=== PATIENT | female | born 1975 | race Caucasian/White ===

== ENCOUNTER 2018-06-22 00:12 | Emergency (ER) | payer BC, OTHER ==
[2018-06-22] MEDS ORDERED: NORMAL SALINE 1000 ML 1,000 ML IV ONE (00:45)
[2018-06-22] MEDS ORDERED: ONDANSETRON HCL INJ/PF 4 MG/2 ML SDV IV ONE (00:45)
[2018-06-22] MEDS ORDERED: MORPHINE SULFATE 10 MG/ML INJ IV PRN (00:45)
[2018-06-22] MEDS ORDERED: KETOROLAC TROMETHAMINE INJ/PF 30 MG/1 ML SDV IV ONE (00:45)
[2018-06-22 01:11] LABS: ABSOLUTE EOSINOPHILS # (AUTO) 0.1 10^3/uL (0.0-0.6); ABSOLUTE LYMPHOCYTES (AUTO) 1.5 10^3/uL (0.5-4.7); ABSOLUTE MONOCYTES (AUTO) 0.7 10^3/uL (0.1-1.4); ABSOLUTE NEUT (AUTO) 14.7 10^3/uL (1.7-8.2); BASOPHILS % (AUTO) 0.2 % (0-2); EOSINOPHILS % (AUTO) 0.6 % (0-6); HEMATOCRIT 40.5 % (36.0-47.0); HEMOGLOBIN 14.1 g/dL (12.0-15.5); LYMPHOCYTES % (AUTO) 8.9 % (13-45); MEAN CORPUSCULAR HEMOGLOBIN 31.9 pg (27.0-33.4); MEAN CORPUSCULAR HGB CONC 34.7 g/dL (32.0-36.0); MEAN CORPUSCULAR VOLUME 92 fl (80-97); MONOCYTES % (AUTO) 3.9 % (3-13); PLATELET COUNT 237 10^3/uL (150-450); RED CELL DISTRIBUTION WIDTH 13.5 % (11.5-14.0); SEGMENTED NEUTROPHILS % (AUTO) 86.4 % (42-78); TOTAL CELLS COUNTED % (AUTO) 100 %
[2018-06-22] MEDS ORDERED: METOCLOPRAMIDE HCL INJ/PF 10 MG/2 ML SDV IV ONE (01:11)
[2018-06-22 01:29] LABS: ALANINE AMINOTRANSFERASE 21 U/L (9-52); ALBUMIN 4.7 g/dL (3.5-5.0); ALKALINE PHOSPHATASE 95 U/L (38-126); ANION GAP 14 (5-19); ASPARTATE AMINO TRANSFERASE 26 U/L (14-36); BILIRUBIN,DIRECT 0.3 mg/dL (0.0-0.4); BILIRUBIN,TOTAL 0.7 mg/dL (0.2-1.3); BLOOD UREA NITROGEN 15 mg/dL (7-20); CALCIUM 9.7 mg/dL (8.4-10.2); CARBON DIOXIDE 26 mmol/L (22-30); CHLORIDE 99 mmol/L (98-107); GLUCOSE 137 mg/dL (75-110); POTASSIUM 4.1 mmol/L (3.6-5.0); SODIUM 139.4 mmol/L (137-145); TOTAL PROTEIN 8.6 g/dL (6.3-8.2)
--- NOTE | 2018-06-22 02:03 | RADIOLOGY REPORT (SQ) ---
CLINICAL HISTORY: rlq pain, eval stone, hx complicated stones COMPARISON: None. TECHNIQUE: CT ABDOMEN PELVIS WITHOUT IV CONTRAST on 06/22/2018 1:10 AM CDT This exam was performed according to our departmental dose-optimization program, which includes automated exposure control, adjustment of the mA and/or kV according to patient size and/or use of iterative reconstruction technique. FINDINGS: Lower lungs are clear. Abdomen: There is a cyst in the anterior left lobe of the liver which are simple in configuration and measures 2.7 cm. There is no biliary dilatation. Gallbladder is normal in appearance. The pancreas and spleen are normal in appearance. Adrenal glands are normal. There are at least three left renal calculi measuring up to 4 mm. There are two lower pole right renal calculi measuring up to 9 mm. There is a 5 mm calculus at the right UPJ. There is mild right hydronephrosis. There is no left hydronephrosis. Abdominal aorta is normal in course and caliber without aneurysm. There is no free air. There is no retroperitoneal adenopathy. Pelvis: There is mild diverticulosis of the distal colon. Urinary bladder is unremarkable. There is no free fluid. Hysterectomy was performed. Skeleton: There are no acute osseous findings. No suspicious bony lesions. IMPRESSION: Bilateral nephrolithiasis with 5 mm right UPJ calculus.
[2018-06-22 02:09] LABS: APPEARANCE,URINE CLEAR; BILIRUBIN,URINE NEGATIVE (NEGATIVE); COLOR,URINE YELLOW; GLUCOSE, URINE NEGATIVE (NEGATIVE); KETONES,URINE TRACE mg/dL (NEGATIVE); LEUKOCYTE ESTERASE,URINE NEGATIVE (NEGATIVE); NITRITE,URINE NEGATIVE (NEGATIVE); PROTEIN,URINE NEGATIVE (NEGATIVE); UROBILINOGEN,URINE NEGATIVE mg/dL (<2.0)
[2018-06-22] MEDS: HYDROMORPHONE HCL INJ/PF 2 MG/ML AMPULE IV PRN ×2 (02:11→03:34)
[2018-06-22] MEDS ORDERED: HYDROCODONE/ACETAMINOPHEN 5-325 MG (6 TAB/ER DISP) PO PRN (03:05)
[2018-06-22] MEDS ORDERED: ONDANSETRON ODT 4 MG TAB (6 TAB/ER DISP) PO PRN (03:05)
[2018-06-22] MEDS ORDERED: TAMSULOSIN HCL 0.4 MG CAP.SR.24H PO ONE (03:05)
--- NOTE | 2018-06-22 03:08 | ER Document Report ---
ED General - General Chief Complaint: Abdominal Pain Stated Complaint: NAUSEA Time Seen by Provider: 06/22/18 00:45 Primary Care Provider: EL KINSEY [Primary Care Provider] - Follow up as needed Notes: Patient is a 43-year-old female with a past medical history of appendectomy, hysterectomy, nephrectomy bilaterally, history of nephrolithiasis, presents with an acute onset of right lower quadrant abdominal pain. States that approximate 2 hours prior to arrival she had an abrupt onset of severe, throbbing, constant pain to the right lower abdomen. Has had associated nausea and vomiting. He was noted to improve or worsen the pain. She states that she had kidney stones in the past but this feels even more severe than that pain. Has not seen her primary care doctor regarding today's concerns. She has had 3 kidney stones in the past all of which required lithotripsy and she has never been able to successfully passed one on her own. TRAVEL OUTSIDE OF THE [place] IN LAST 30 DAYS: No - Related Data Allergies/Adverse Reactions: morphine Adverse Reaction (Verified 06/22/18 01:04) VOMITING Past Medical History - General Information source: Patient - Social History Smoking Status: Never Smoker Frequency of alcohol use: None Drug Abuse: None Lives with: Family Family History: Reviewed & Not Pertinent - Past Medical History Cardiac Medical History: Denies: Hx Coronary Artery Disease, Hx Heart Attack, Hx Hypertension Pulmonary Medical History: Reports: Hx Asthma - Rarely uses inhaler(>1 yr since last use) Denies: Hx Bronchitis, Hx COPD, Hx Pneumonia Neurological Medical History: Denies: Hx Cerebrovascular Accident, Hx Seizures Musculoskeletal Medical History: Denies Hx Arthritis Past Surgical History: Denies: Hx Pacemaker - Immunizations Hx Diphtheria, Pertussis, Tetanus Vaccination: No Review of Systems - Review of Systems Notes: Constitutional: Negative for fever. HENT: Negative for sore throat. Eyes: Negative for visual changes. Cardiovascular: Negative for chest pain. Respiratory: Negative for shortness of breath. Gastrointestinal: Positive for right lower abdominal pain and vomiting Genitourinary: Negative for dysuria. Musculoskeletal: Negative for back pain. Skin: Negative for rash. Neurological: Negative for headaches, weakness or numbness. 10 point ROS negative except as marked above and in HPI. Physical Exam - Vital signs Vitals: Temp Pulse Resp BP Pulse Ox 97.8 F 77 28 H 147/90 H 100 06/22/18 00:26 06/22/18 00:26 06/22/18 00:26 06/22/18 00:26 06/22/18 00:26 Interpretation: Hypertensive, Tachypneic Notes: PHYSICAL EXAMINATION: GENERAL: Appears uncomfortable, vomiting HEAD: Atraumatic, normocephalic. EYES: Pupils equal round and reactive to light, extraocular movements intact, sclera anicteric, conjunctiva are normal. ENT: nares patent, oropharynx clear without exudates. Moist mucous membranes. NECK: Normal range of motion, supple without lymphadenopathy LUNGS: Breath sounds clear to auscultation bilaterally and equal. No wheezes rales or rhonchi. HEART: Regular rate and rhythm without murmurs ABDOMEN: Soft, mild tenderness to the right lower quadrant as well as the right flank but no other localized areas of tenderness, normoactive bowel sounds. No guarding, no rebound. No masses appreciated. EXTREMITIES: Normal range of motion, no pitting or edema. No cyanosis. NEUROLOGICAL: No focal neurological deficits. Moves all extremities spontaneously and on command. PSYCH: Normal mood, normal affect. SKIN: Warm, Dry, normal turgor, no rashes or lesions noted. Appears very uncom fortable, nauseated but in no acute distress Course - Re-evaluation Re-evalutation: 06/22/18 03:04 Presents with findings consistent with acute nephrolithiasis. CT does confirm a 5 mm UPJ stone on the right. Laboratory otherwise unremarkable. Pain was able to be controlled here in the emergency department. Patient is tolerating oral intake. Clinical history is not consistent with an acute abdominal aneurysm or dissection, [place], or pulmonary embolus. Urinalysis does not show findings consistent with an infected stone. Vitals have remained within normal limits. Patient will be discharged with recommendations to follow-up with urology, pain medications, and return precautions. They are in agreement with this plan and v erbalized indications return to emergency department. - Vital Signs Vital signs: Temp Pulse Resp BP Pulse Ox 97.8 F 77 28 H 147/90 H 100 06/22/18 00:26 06/22/18 00:26 06/22/18 00:26 06/22/18 00:26 06/22/18 00:26 - Laboratory Result Diagrams: 06/22/18 00:50 06/22/18 00:50 Laboratory results interpreted by me: 06/22/18 06/22/18 06/22/18 00:50 00:50 01:37 WBC 17.0 H Seg Neutrophils % 86.4 H Lymphocytes % 8.9 L Absolute Neutrophils 14.7 H Glucose 137 H Total Protein 8.6 H Urine Ketones TRACE H Urine Blood MODERATE H - Diagnostic Test Radiology reviewed: Reports reviewed Discharge - Discharge Clinical Impression: Right kidney stone, Right flank pain Nausea and vomiting Qualifiers: Vomiting type: unspecified Vomiting Intractability: non-intractable Qualified Code(s): R11.2 - Nausea with vomiting, unspecified Condition: Good Disposition: HOME, SELF-CARE Additional Instructions: Your symptoms should improve over the course of the next one week. If you continue to have pain for greater than one week or your pain is not controlled with the pain medications that you have been sent home with you need to return to the emergency department. Please also return if you develop fever, persistent vomiting, or any other symptoms that are concerning to you. For your pain: Take ibuprofen 600 mg and acetaminophen 1000 mg every 6 hours together as needed for pain. If this does not control your pain you may take 5 mg of oral oxycodone every 4 hours as needed. You are also been sent home with a medication called Flomax to help pass the stone. You've been given Zofran to assist with nausea. Please follow-up with urology in the next 2-3 days. Follow-up with urology as below: [address] [place] [address] Prescriptions: Oxycodone HCl [Oxycontin Ir 5 Mg Tablet] 1 tab PO Q4H PRN #8 tablet PRN Reason: For Pain Tamsulosin HCl [Flomax 0.4 mg Cap.sr] 0.4 mg PO DAILY #7 cap.sr.24h Referrals: [facility] [Primary Care Provider] - Follow up as needed
[2018-06-22 03:48] VITALS: BP 139/84
== END 2018-06-22 03:48 | disposition home or self-care (01) ==
LOC: ER 00:12
DX: N13.2 Hydronephrosis with renal and ureteral calculous obstruction (principal); R10.31 Right lower quadrant pain; R11.2 Nausea with vomiting, unspecified; J45.909 Unspecified asthma, uncomplicated; Z90.5 Acquired absence of kidney; Z90.49 Acquired absence of other specified parts of digestive tract; Z90.710 Acquired absence of both cervix and uterus
CPT/HCPCS: 96376; 99284; 96361; 96374; 96375; 36415; 84703; 85025; 80053; 81001; 74176; J1885; J2765; J1170; J2405; J7030